=== PATIENT | female | born 1995 | race Native Hawaiian/Other Pacific Islander ===

== ENCOUNTER 2018-06-21 14:39 | Emergency (ER) | payer OTHER ==
[~2018-06-21] VITALS: Ht 147.3 cm; Wt 68.0 kg
[2018-06-21 14:40] VITALS: TEMP 97
[2018-06-21 15:22] LABS: PLATELET COUNT 335 K/uL (152-353)
[2018-06-21 15:40] LABS: POTASSIUM 3.4 mmol/L (3.6-5.2)
[2018-06-21 15:59] VITALS: BP 112/60
== END 2018-06-21 16:00 | disposition home or self-care (01) ==
LOC: ED 14:39
DX: O47.03 False labor before 37 completed weeks of gestation, third trimester (principal); Z3A.36 36 weeks gestation of pregnancy; O23.43 Unspecified infection of urinary tract in pregnancy, third trimester
CPT/HCPCS: 36415; 80053; 81000; 85027; 87088; 99284